=== PATIENT | male | born 1955 | race Caucasian/White ===

== ENCOUNTER → 2016-07-26 | Outpatient (CLI) | payer BC ==
[~2016-07-26] MED LIST: ATORVASTATIN CA40 MG PO; CLARITIN10 M2 PO; FLONASE16 GM; NORVASC PO; PRILOSEC40 MG PO; SINGULAIR PO; TOPROL XL 50 MG50 MG PO; ZESTORETIC 20/21 TAB; ZESTORETIC 20/21 TAB PO; ZYRTEC10 M2 PO
--- NOTE | ~2016-07-26 | US6 ---
[facility] A Service of [facility] RADIOLOGY TEXT RESULTS PATIENT: MIAH ARMENTA LOCATION: [place] : 57 UNIT #: [id number] AGE: [address]: Kevin Augustine MD SEX: M ORDER DR: [id number] [place] [id number] O MR#: [id number] Acc #: [id number] NAME: MIAH ARMENTA : 1955 SEX: M STUDY DATE/TIME: 07/26/2016 9:36 UNIT: SGUS ROOM: STUDY DESCRIPTION: US Abdominal Limited Attending Physician: Kevin Augustine M.D. Referring Physician: Kevin Augustine M.D. Ordering Physician: Kevin Augustine M.D. Primary Care Physician: Kevin Augustine M.D. MEDICAL IMAGING REPORT This report is preliminary unless electronic signature is present. EXAM Lower quadrant abdominal ultrasound 07/26/2016 HISTORY Abnormal elevated liver function test documented approximately 2 weeks ago per patient. Intermittent right side abdominal pain for 2 months. COMPARISON Bilateral renal ultrasound 10/02/2012. FINDINGS The imaged pancreas appears normal. Liver demonstrates normal coarsened echotexture with diminished through transmission suggesting features of hepatic steatosis. Liver size is enlarged measuring about 19.6 cm craniocaudally. No focal liver lesion is seen. Common bile duct caliber is normal, 3 mm. Gallbladder is free of shadowing stone, sludge, wall thickening, or pericholecystic fluid. Right kidney measures 11.1 in length without focal cortical lesion, shadowing stone or hydronephrosis. No ascites is seen. Intrahepatic IVC is not well visualized. Pancreas has an unremarkable sonographic appearance. IMPRESSION Hepatomegaly with features of hepatic steatosis. No focal liver lesions are identified. Note to batteryman upon the ninth and body report. Dictated by... Steph Velez M.D. [facility] A Service of [facility] RADIOLOGY TEXT RESULTS PATIENT: MIAH ARMENTA LOCATION: [facility] : 57 UNIT #: [id number] AGE: [address]: Kevin Augustine MD SEX: M ORDER DR: THIS IS AN ELECTRONICALLY VERIFIED REPORT Steph Velez M.D. at 07/27/2016 7:11 AM TRACY/iveth TD: 07/26/2016 20:48 JOB #: [id number] MEDICAL IMAGING REPORT Page 1 of 1
== END | disposition home or self-care (01) ==
LOC: SGUS 09:27
DX: R79.89 Other specified abnormal findings of blood chemistry (principal); R16.0 Hepatomegaly, not elsewhere classified; K76.0 Fatty (change of) liver, not elsewhere classified
CPT/HCPCS: 76705